=== PATIENT | female | born 1945 | race American Indian/Alaskan Native ===

== ENCOUNTER 2020-08-18 12:31 | Emergency (ER) | payer MEDICARE, OTHER ==
[2020-08-18 13:08] VITALS: BP 146/60; PULSE 55
--- NOTE | 2020-08-18 13:48 | EDM.PDOC ---
ED HPI GENERAL MEDICAL PROBLEM - General Chief Complaint: Cardiovascular Problem Stated Complaint: low potassium Time Seen by Provider: 08/18/20 12:45 Source of Information: Reports: Patient History Limitations: Reports: No Limitations - History of Present Illness INITIAL COMMENTS - FREE TEXT/NARRATIVE: pt states on wednesday she was not feeling well, developed palpitations Went To ER was seen and noted to have Afib: states it was difficult for then to get her rate controlled like usual ( was given 2 doses of 2.5mg metoprolol) Was also noted to have low K , had IV K given States she had felt better , but this am when she woke up she felt sob and had palpitations also that was about 45 mins prior to arrival in ER: her HR is in the 50's and she still is complaining of shortness of breath no chest pain , no MÉNDEZ no fever or chills no abd pain states she has a history of asthma and is on advair daily and albuterol prn states sob is not similar to same when she has acute asthma exacerbation Onset: Today Onset Date: 08/18/20 Duration: Resolved Prior to Arrival Location: Reports: Chest Quality: Reports: Same as Previous Episode Improves with: Reports: None Worsens with: Reports: None Associated Symptoms: Reports: No Other Symptoms 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(s) - Related Data Allergies Allergy/AdvReac Type Severity Reaction Status Date / Time amoxicillin Allergy Edema Verified 08/18/20 13:01 grapefruit Allergy Hives Verified 08/18/20 13:01 naproxen Allergy Nausea Verified 08/18/20 13:01 Penicillins Allergy Hives Verified 08/18/20 13:01 dye Allergy Shortness Uncoded 06/11/15 15:43 of Breath PEANUT BUTTER Allergy Itching Uncoded 07/11/15 15:28 Home Meds: Home Meds Albuterol [Ventolin HFA] 2 puff INH Q4H PRN 06/11/15 [History] Pantoprazole 40 mg PO ACBREAKFAST 06/11/15 [History] Ergocalciferol (Vitamin D2) [Vitamin D2] 50,000 unit PO ASDIRECTED 07/11/15 [History] Fluticasone/Salmeterol [Advair Diskus 500-50] 1 puff INH BID 07/11/15 [History] Triamterene/Hydrochlorothiazid [Triamterene-HCTZ 37.5-25 MG] 1 each PO ASDI RECTED 07/11/15 [History] Sertraline [Zoloft] 25 mg PO DAILY 08/18/20 [History] Past Medical History Cardiovascular History: Reports: Hypertension Respiratory History: Reports: Asthma Gastrointestinal History: Reports: Other (See Below) Other Gastrointestinal History: HX OF DIVERTICULITIS Neurological History: Reports: TIA, Other (See Below) Other Neuro History: HX OF TIA 2003 Endocrine/Metabolic History: Reports: Diabetes, Type II - Past Surgical History HEENT Surgical History: Reports: Cataract Surgery, Other (See Below) Social & Family History - Family History Oncologic: Reports: Leukemia ED ROS GENERAL - Review of Systems Review Of Systems: See Below Constitutional: Denies: Fever, Chills, Malaise, Weakness, Fatigue HEENT: Reports: No Symptoms Respiratory: Denies: Shortness of Breath, Cough Cardiovascular: Reports: Lightheadedness. Denies: Chest Pain, Dyspnea on Exertion, Edema, Palpitations Endocrine: Denies: Fatigue GI/Abdominal: Reports: No Symptoms : Reports: No Symptoms Musculoskeletal: Reports: No Symptoms Skin: Reports: No Symptoms Neurological: Reports: Dizziness. Denies: Confusion, Headache, Paresthesia, Tremors, Trouble Speaking Psychiatric: Reports: No Symptoms Hematologic/Lymphatic: Reports: No Symptoms Immunologic: Reports: No Symptoms ED EXAM, GENERAL - Physical Exam Exam: See Below Exam Limited By: No Limitations General Appearance: Alert, WD/WN, No Apparent Distress Eye Exam: Right Eye: Proptosis Ears: Normal TMs Ear Exam: Bilateral Ear: Canal Normal Nose: Normal Inspection Throat/Mouth: Normal Oropharynx Head: Atraumatic, Normocephalic Neck: Supple, Non-Tender Respiratory/Chest: Lungs Clear, Normal Breath Sounds Cardiovascular: Regular Rate, Rhythm GI/Abdominal: Soft, Non-Tender Back Exam: Normal Inspection, Full Range of Motion Extremities: Normal Inspection, Normal Range of Motion Neurological: Alert, Oriented, CN II-XII Intact Psychiatric: Normal Affect Skin Exam: Warm, Dry #1 Interpretation EKG Date: 08/18/20 Time: 12:29 Rhythm: NSR Rate (Beats/Min): 55 [place]: LAD-Left [place] Deviation P-Wave: Present QRS: Normal ST-T: Normal QT: Normal Comparison: No Change (compared to 06/11/2015) EKG Interpretation Comments: normal EKG Course - Vital Signs Last Recorded V/S: Last Vital Signs Temp 36.8 C 08/18/20 12:35 Pulse 55 L 08/18/20 12:35 Resp 18 08/18/20 12:35 BP 146/60 H 08/18/20 12:35 Pulse Ox 100 08/18/20 12:35 - Orders/Labs/Meds Orders: Active Orders 24 hr Category Date Time Status Chest 2V [CR] Stat Exams 08/18/20 13:34 Taken EKG 12 Lead [EK] Routine Ther 08/18/20 12:32 Ordered Labs: Laboratory Tests 08/18/20 08/18/20 08/18/20 Range/Units 12:50 12:50 12:50 WBC 9.3 (3.0-10.3) x10-3/uL RBC 5.28 H (3.60-5.20) x10(6)uL Hgb 13.6 (11.4-15.5) g/dL Hct 42.6 (34.2-48.2) % MCV 80.6 (76.7-100.5) fL MCH 25.8 (23.9-33.9) pg MCHC 32.1 (31.9-34.8) g/dL RDW 15.1 (12.3-16.5) % Plt Count 272 (151-488) x10(3)uL MPV 9.0 (7.1-12.4) fL Neut % (Auto) 66.5 (30.8-76.2) % Lymph % (Auto) 23.2 (18.4-52.1) % [place] % (Auto) 6.3 (4.4-15.7) % Eos % (Auto) 2.9 (0.6-8.1) % Baso % (Auto) 1.1 (0.2-1.5) % Neut # (Auto) 6.2 (1.5-6.3) x10-3/uL Lymph # (Auto) 2.1 (1.0-4.4) x10-3/uL [place] # (Auto) 0.6 (0.3-1.0) x10-3/uL Eos # (Auto) 0.3 (0.0-0.8) x10-3/uL Baso # (Auto) 0.1 (0.0-0.1) x10-3/uL PT 10.7 (9.0-11.1) sec INR 0.99 L (1.00-1.24) D-Dimer, Quantitative (0.0-0.59) mg/LFEU Sodium 141 (135-145) mmol/L Potassium 3.9 (3.5-5.3) mmol/L Chloride 101 (100-110) mmol/L Carbon Dioxide 29 (21-32) mmol/L BUN 12 (7-18) mg/dL Creatinine 1.1 H (0.55-1.02) mg/dL Est Cr Clr Drug Dosing TNP Estimated GFR (MDRD) 49 L (>60) BUN/Creatinine Ratio 10.9 (9-20) Glucose 106 (80-116) mg/dL Calcium 8.5 L (8.6-10.2) mg/dL Total Bilirubin 0.6 (0.1-1.3) mg/dL AST 12 (5-25) IU/L ALT 21 (12-36) U/L Alkaline Phosphatase 64 (56-112) IU/L Troponin I (4.0-60.3) pg/mL NT-Pro-B Natriuret Pep (<=125) pg/mL Total Protein 7.6 (6.0-8.0) g/dL Albumin 3.5 (3.2-4.6) g/dL Globulin 4.1 g/dL Albumin/Globulin Ratio 0.9 Urine Color (YELLOW) Urine Appearance (CLEAR) Urine pH (5.0-6.5) Ur Specific [place] (1.010-1.025) Urine Protein (NEGATIVE) mg/dL Urine Glucose (UA) (NORMAL) mg/dL Urine Ketones (NEGATIVE) mg/dL Urine Occult Blood (NEGATIVE) Urine Nitrite (NEGATIVE) Urine Bilirubin (NEGATIVE) Urine Urobilinogen (NEGATIVE) mg/dL Ur Leukocyte Esterase (NEGATIVE) Urine RBC (0-5) Urine WBC (0-5) Ur Squamous Epith Cells (NS,R,O) Urine Bacteria (NS) 08/18/20 08/18/20 08/18/20 Range/Units 12:50 12:50 12:50 WBC (3.0-10.3) x10-3/uL RBC (3.60-5.20) x10(6)uL Hgb (11.4-15.5) g/dL Hct (34.2-48.2) % MCV (76.7-100.5) fL MCH (23.9-33.9) pg MCHC (31.9-34.8) g/dL RDW (12.3-16.5) % Plt Count (151-488) x10(3)uL MPV (7.1-12.4) fL Neut % (Auto) (30.8-76.2) % Lymph % (Auto) (18.4-52.1) % [place] % (Auto) (4.4-15.7) % Eos % (Auto) (0.6-8.1) % Baso % (Auto) (0.2-1.5) % Neut # (Auto) (1.5-6.3) x10-3/uL Lymph # (Auto) (1.0-4.4) x10-3/uL [place] # (Auto) (0.3-1.0) x10-3/uL Eos # (Auto) (0.0-0.8) x10-3/uL Baso # (Auto) (0.0-0.1) x10-3/uL PT (9.0-11.1) sec INR (1.00-1.24) D-Dimer, Quantitative 0.22 (0.0-0.59) mg/LFEU Sodium (135-145) mmol/L Potassium (3.5-5.3) mmol/L Chloride (100-110) mmol/L Carbon Dioxide (21-32) mmol/L BUN (7-18) mg/dL Creatinine (0.55-1.02) mg/dL Est Cr Clr Drug Dosing Estimated GFR (MDRD) (>60) BUN/Creatinine Ratio (9-20) Glucose (80-116) mg/dL Calcium (8.6-10.2) mg/dL Total Bilirubin (0.1-1.3) mg/dL AST (5-25) IU/L ALT (12-36) U/L Alkaline Phosphatase (56-112) IU/L Troponin I 4.8 (4.0-60.3) pg/mL NT-Pro-B Natriuret Pep 243 H (<=125) pg/mL Total Protein (6.0-8.0) g/dL Albumin (3.2-4.6) g/dL Globulin g/dL Albumin/Globulin Ratio Urine Color (YELLOW) Urine Appearance (CLEAR) Urine pH (5.0-6.5) Ur Specific [place] (1.010-1.025) Urine Protein (NEGATIVE) mg/dL Urine Glucose (UA) (NORMAL) mg/dL Urine Ketones (NEGATIVE) mg/dL Urine Occult Blood (NEGATIVE) Urine Nitrite (NEGATIVE) Urine Bilirubin (NEGATIVE) Urine Urobilinogen (NEGATIVE) mg/dL Ur Leukocyte Esterase (NEGATIVE) Urine RBC (0-5) Urine WBC (0-5) Ur Squamous Epith Cells (NS,R,O) Urine Bacteria (NS) 08/18/20 Range/Units 13:50 WBC (3.0-10.3) x10-3/uL RBC (3.60-5.20) x10(6)uL Hgb (11.4-15.5) g/dL Hct (34.2-48.2) % MCV (76.7-100.5) fL MCH (23.9-33.9) pg MCHC (31.9-34.8) g/dL RDW (12.3-16.5) % Plt Count (151-488) x10(3)uL MPV (7.1-12.4) fL Neut % (Auto) (30.8-76.2) % Lymph % (Auto) (18.4-52.1) % [place] % (Auto) (4.4-15.7) % Eos % (Auto) (0.6-8.1) % Baso % (Auto) (0.2-1.5) % Neut # (Auto) (1.5-6.3) x10-3/uL Lymph # (Auto) (1.0-4.4) x10-3/uL [place] # (Auto) (0.3-1.0) x10-3/uL Eos # (Auto) (0.0-0.8) x10-3/uL Baso # (Auto) (0.0-0.1) x10-3/uL PT (9.0-11.1) sec INR (1.00-1.24) D-Dimer, Quantitative (0.0-0.59) mg/LFEU Sodium (135-145) mmol/L Potassium (3.5-5.3) mmol/L Chloride (100-110) mmol/L Carbon Dioxide (21-32) mmol/L BUN (7-18) mg/dL Creatinine (0.55-1.02) mg/dL Est Cr Clr Drug Dosing Estimated GFR (MDRD) (>60) BUN/Creatinine Ratio (9-20) Glucose (80-116) mg/dL Calcium (8.6-10.2) mg/dL Total Bilirubin (0.1-1.3) mg/dL AST (5-25) IU/L ALT (12-36) U/L Alkaline Phosphatase (56-112) IU/L Troponin I (4.0-60.3) pg/mL NT-Pro-B Natriuret Pep (<=125) pg/mL Total Protein (6.0-8.0) g/dL Albumin (3.2-4.6) g/dL Globulin g/dL Albumin/Globulin Ratio Urine Color Yellow (YELLOW) Urine Appearance Clear (CLEAR) Urine pH 8.0 H (5.0-6.5) Ur Specific [place] 1.010 (1.010-1.025) Urine Protein Negative (NEGATIVE) mg/dL Urine Glucose (UA) Normal (NORMAL) mg/dL Urine Ketones Negative (NEGATIVE) mg/dL Urine Occult Blood Negative (NEGATIVE) Urine Nitrite Negative (NEGATIVE) Urine Bilirubin Negative (NEGATIVE) Urine Urobilinogen Normal (NEGATIVE) mg/dL Ur Leukocyte Esterase Negative (NEGATIVE) Urine RBC 0-5 (0-5) Urine WBC 0-5 (0-5) Ur Squamous Epith Cells Rare (NS,R,O) Urine Bacteria Rare H (NS) - Re-Assessments/Exams Free Text/Narrative Re-Assessment/Exam: 08/18/20 13:48 pt had labs , EKG done immediately EKG showed NSR of 55 Cxray done Review labs: normal K level 08/18/20 15:26 Departure - Departure Time of Disposition: 15:30 Disposition: Home, Self-Care 01 Condition: Fair Clinical Impression: Dyspnea, Afib, Palpitations, Hypokalemia due to loss of potassium Instructions: Shortness of Breath, Adult, [id number], Atrial Fibrillation, [id number] Referrals: Kendra Catalan PA [Primary Care Provider] - Forms: ED Department Discharge Additional Instructions: 1) Eat a banana daily you need recheck of potassium level this week 2) Make appointment to see a PCP this week 3) 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
--- NOTE | 2020-08-19 11:37 | CR ---
INDICATION: Dyspnea. CHEST, TWO VIEWS: PA and lateral views of the chest were obtained 08/18/20 and compared with 06/11/15, again revealing evidence of exogenous obesity. The heart did not appear enlarged but may be near the upper limits of normal in size. The aorta is tortuous. Overlying EKG leads are noted. An active infiltrate or effusion was not identified. Diaphragm leaves are flattened with prominent AP diameter and hyperaeration raising question of COPD - correlate clinically. IMPRESSION: 1. No definite acute process. 2. Probable COPD. 3. Probable ASHD. MTDD
== END 2020-08-18 15:53 | disposition home or self-care (01) ==
LOC: FB.ED 12:31
DX: E87.6 Hypokalemia (principal); I48.91 Unspecified atrial fibrillation; I10 Essential (primary) hypertension; J45.909 Unspecified asthma, uncomplicated; E11.9 Type 2 diabetes mellitus without complications; Z88.1 Allergy status to other antibiotic agents; Z91.018 Allergy to other foods; Z88.8 Allergy status to other drugs, medicaments and biological substances; Z88.0 Allergy status to penicillin; Z91.010 Allergy to peanuts; Z79.899 Other long term (current) drug therapy; Z86.73 Personal history of transient ischemic attack (TIA), and cerebral infarction without residual deficits
CPT/HCPCS: 36415; 71046; 80053; 81001; 83880; 84484; 85025; 85379; 85610; 93005; 93010; 99284; 99285-25